=== PATIENT | male | born 1965 | race Caucasian/White ===

== ENCOUNTER 2017-10-27 19:26 | Emergency (ER) | payer SELFPAY ==
[2017-10-27 19:44] VITALS: BP 154/113; PULSE 77; RESP 16; TEMP 98.8; O2SAT 96
[2017-10-27] MEDS ORDERED: Oxycodone/Acetaminophen 5/325 mg Tab PO STA (20:12)
[2017-10-27] MEDS ORDERED: Oxycodone/Acetaminophen 5/325 mg Tab ONE (20:17)
--- NOTE | 2017-10-27 22:48 | ED PDOC ---
HPI: Skin/Bite Injury Time Seen by Provider: 10/27/17 19:56 Chief Complaint (Nursing): Abnormal Skin Integrity Chief Complaint (Provider): Shingles History Per: Patient History/Exam Limitations: no limitations Onset/Duration Of Symptoms: Days Current Symptoms Are (Timing): Still Present Additional Complaint(s): Ryland Paige is a 52 year old male who presents to the ED for an evaluation of shingles. He reports of pain on the right thoracic region 3 days ago which he states was similar to the episode of shingles he had in the past, 13 years ago. PMD: No Provider Past Medical History Reviewed: Historical Data, Nursing Documentation, Vital Signs Vital Signs: Last Vital Signs Temp 98.8 F 10/27/17 19:42 Pulse 77 10/27/17 19:42 Resp 16 10/27/17 19:42 BP 154/113 H 10/27/17 19:42 Pulse Ox 96 10/27/17 23:15 - Medical History Other PMH: shingles - Family History Family History: States: Unknown Family Hx - Home Medications Home Medications: Ambulatory Orders Medication Instructions Recorded Gabapentin [Neurontin] 300 mg PO TID #30 cap 10/27/17 Valacyclovir HCl [Valtrex] 1,000 mg PO TID #21 tablet 10/27/17 - Allergies Allergies/Adverse Reactions: Allergies Allergy/AdvReac Type Severity Reaction Status Date / Time No Known Allergies Allergy Verified 10/27/17 20:09 Review of Systems ROS Statement: Except As Marked, All Systems Reviewed And Found Negative Constitutional: Negative for: Fever Skin: Positive for: Other (shingles) Psych: Negative for: Suicidal ideation (homicidal ideation ) Physical Exam - Reviewed Nursing Documentation Reviewed: Yes Vital Signs Reviewed: Yes - Physical Exam Appears: Positive for: Non-toxic, No Acute Distress Head Exam: Positive for: ATRAUMATIC, NORMAL INSPECTION, NORMOCEPHALIC Skin: Positive for: Rash (vesicular rash to right thoracic region, erythematous , anterior to right posterior thoracic region) Neurologic/Psych: Positive for: Alert, Oriented (x3) - ECG O2 Sat by Pulse Oximetry: 96 (RA) Pulse Ox Interpretation: Normal Medical Decision Making Medical Decision Making: Time: 2011 Initial Impression: 52 year old male with shingles Initial Plan: --Percocet 5/325mg Patient requesting percocet after prescription of Neurontin 300mg and Valtrex 1000mg. Patient noted of having no photo ID upon registration. On prescription monitoring program, [employer] he did not populate as a patient. Provider suspects patient might be under an alien name and registration states patient came under a different name to the ED before. Provider noted drug seeking behavior and advised he will not be given percocet. Patient ripped off given paper for given prescription. Patient diagnosed with shingles and opioid seeking behavior. Scribe Attestation: Documented by Derick Meyers, acting as a scribe for Kevin Ramon MD Provider Scribe Attestation: All medical record entries made by the Scribe were at my direction and personally dictated by me. I have reviewed the chart and agree that the record accurately reflects my personal performance of the history, physical exam, medical decision making, and the department course for this patient. I have also personally directed, reviewed, and agree with the discharge instructions and disposition. Disposition - Clinical Impression Clinical Impression: Shingles - Patient ED Disposition Is Patient to be Admitted: No - Disposition Disposition: Routine/Home Disposition Time: 20:30 Condition: STABLE Prescriptions: Gabapentin [Neurontin] 300 mg PO TID #30 cap Valacyclovir HCl [Valtrex] 1,000 mg PO TID #21 tablet Instructions: Shingles Forms: [employer] ([employer])
== END 2017-10-27 21:17 | disposition home or self-care (01) ==
LOC: H.ER 19:26
DX: B02.9 Zoster without complications (principal)